=== PATIENT | female | born 1950 | race Caucasian/White ===

== ENCOUNTER → 2017-12-09 | Outpatient (CLI) | payer MEDICARE ==
[~2017-12-09] MED LIST: GADOBUTROL 10 MMOL/10 ML VIAL ONE
== END ==
LOC: CFH 14:25
PROVIDERS: ATTEND Family Medicine
DX: Z13.820 Encounter for screening for osteoporosis (principal); M85.80 Other specified disorders of bone density and structure, unspecified site; R47.9 Unspecified speech disturbances; Z78.0 Asymptomatic menopausal state
CPT/HCPCS: 70544; 70549; 77080; A9585

== ENCOUNTER → 2020-04-15 | Outpatient (CLI) | payer MEDICARE | END | disposition home or self-care (01) | LOC: CFH 11:19 | PROVIDERS: ATTEND Nurse Practitioner | DX: M81.0 Age-related osteoporosis without current pathological fracture (principal); N95.8 Other specified menopausal and perimenopausal disorders | CPT/HCPCS: 77080 ==

== ENCOUNTER → 2021-04-09 | Outpatient (CLI) | payer MEDICARE, OTHER | END | disposition home or self-care (01) | LOC: CVU 11:34 | PROVIDERS: ATTEND Internal Medicine | DX: C83.39 Diffuse large B-cell lymphoma, extranodal and solid organ sites (principal); R16.1 Splenomegaly, not elsewhere classified; R59.1 Generalized enlarged lymph nodes; I08.8 Other rheumatic multiple valve diseases | CPT/HCPCS: 78815; 93306; 93356; A9552 ==